=== PATIENT | male | born 1985 | race Caucasian/White ===

== ENCOUNTER → 2017-11-20 | Outpatient (CLI) | payer OTHER | LOC: M LRY 13:06 | DX: M79.89 Other specified soft tissue disorders (principal) | CPT/HCPCS: 73610 ==

== ENCOUNTER 2018-12-03 08:08 | Emergency (ER) | payer OTHER ==
[~2018-12-03] VITALS: Ht 167.6 cm; Wt 77.3 kg
[2018-12-03 08:09] VITALS: BP 140/83
[2018-12-03] MEDS ORDERED: FLUORESCEIN OPHTH 1 MG STRIP OS ONE (08:30)
[2018-12-03] MEDS ORDERED: TETRACAINE 0.5% OPHTH SOLN 4ML OS ONE (08:30)
[2018-12-03] MEDS ORDERED: POLYSOL OS (08:43)
== END 2018-12-03 08:51 | disposition home or self-care (01) ==
LOC: M ED 08:08
DX: S05.02XA Injury of conjunctiva and corneal abrasion without foreign body, left eye, initial encounter (principal); S01.112A Laceration without foreign body of left eyelid and periocular area, initial encounter; W22.8XXA Striking against or struck by other objects, initial encounter; Y92.89 Other specified places as the place of occurrence of the external cause

== ENCOUNTER → 2023-02-15 | Outpatient (REF) | payer BC, OTHER ==
[~2023-02-15] MED LIST: POLYSOL OS
== END ==
LOC: M SMT 13:14
PROVIDERS: ATTEND Urology
DX: Z30.2 Encounter for sterilization (principal)

== ENCOUNTER → 2023-09-11 | Outpatient (REF) | payer OTHER, BC ==
[2023-09-11 11:12] LABS: SEMEN APPEARANCE OPAQUE (OPAQUE); SEMEN VISCOSITY LIQUID (LIQUID); SEMEN VOLUME 5.6 ml (2.0-5.0); WBC CONCENTRATION <=1 M/ml (<=1 M/ml)
== END ==
LOC: M SMT 11:07
PROVIDERS: ATTEND Urology
DX: Z30.8 Encounter for other contraceptive management (principal)

== ENCOUNTER → 2025-08-27 | Outpatient (CLI) | payer OTHER | LOC: M EKG 13:03 | PROVIDERS: ATTEND Physician Assistant | DX: R00.2 Palpitations (principal) ==

== ENCOUNTER → 2025-09-18 | Outpatient (CLI) | payer OTHER | LOC: M PLAIMG 07:26 | PROVIDERS: ATTEND Physician Assistant | DX: M19.012 Primary osteoarthritis, left shoulder (principal); M75.52 Bursitis of left shoulder ==